=== PATIENT | male | born 1935 | race Caucasian/White ===

== ENCOUNTER 2017-05-05 19:41 | Emergency (ER) | payer MEDICARE ==
[2017-05-05] MEDS ORDERED: EPINEPHrine SYR 0.1 MG/ML* (1:10,000) SYRINGE ONE (19:42)
--- NOTE | 2017-05-05 22:54 | ED ---
Yuko Ruiz Rebecca, scribed for Morgan Devine MD on 05/05/17 at 1955 . Cardiac Resuscitation - HPI Summary HPI Summary: Pt is a 81 y/o M BIBA p/w cardiac arrest. Per EMS, pt had an episode of witnessed cardiac arrest at his house at 1849. At least 10 minutes elapsed before CPR was initiated. Upon arrival, EMS could not get pulses or spontaneous respirations. EMS administered 6 Epi, put an IO in and intubated the pt. 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 He was hyperglycemic upon EMS arrival, with BG in the 400s. He arrived at [facility] ED at 1940 with fixed pupils, breath sounds bilaterally with bagging and PEA on monitor. Chest compressions were continued and he was administered 3 Epi. Chest compressions ceased at 1951. Level 5 caveat due to Extremis. - History of Current Complaint Stated Complaint: CARDIAC ARREST Hx Obtained From: EMS Hx From Patient Unobtainable Due To: Extremis Arrest Witnessed: Yes Down-time Before Advanced Life Support Initiated: Down-time before ALS initiated : - At least 10 minutes AED Placed on Patient By: EMS Was Defibrillating Shock Administered: Yes Did Patient Have Return of Spontaneous Circulation (ROSC): No - Prehospital Intervention Breathing: Intubation: Circulation/Rhythm: Chest Compressions - Prehospital Response Breathing: ETT in Airway: Circulation/Rhythm: PEA - Past Medical History Past Medical History: Unobtainable Due to Extremis - Family History Family History: Unobtainable Due to Extremis - Social History Social History: Unobtainable Due to Extremis - Review of Systems Review of Systems: Unobtainable Due to Extremis Physical Examination - Physical Examination Completion Of Physical Exam Limited Due To: Extremis Resuscitation Termination Time: 19:52 Resuscitation: Unsuccessful - ED Findings Breathing: Bilateral - Bilateral breath sounds with bagging Circulation/Rhythm: PEA - ED Intervention Circulation/Rhythm: Chest Compressions, Epinephrine: - 3 - ED Response Breathing: Equal Breath Sounds - Breath sounds bilaterally with bagging Circulation/Rhythm: PEA Diagnostics - Vital Signs Vital Signs Pulse 05/05/17 19:52 0 - Laboratory Lab Statement: Any lab studies that have been ordered have been reviewed, and results considered in the medical decision making process. Cardiac Resus. Course/Dx - Course Assessment/Plan: Pt is a 81 y/o M BIBA p/w cardiac arrest. Per EMS, pt had an episode of witnessed cardiac arrest at his house at 1849. At least 10 minutes elapsed before CPR was initiated. Upon arrival, EMS could not get pulses or spontaneous respirations. EMS administered 6 Epi, put an IO in and intubated the pt. 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 He was hyperglycemic upon EMS arrival, with BG in the 400s. He arrived at [facility] ED at 1940 with fixed pupils, breath sounds bilaterally with bagging and PEA on monitor. Chest compressions were continued and he was administered 3 Epi. Chest compressions ceased at 1951. Level 5 caveat due to Extremis. Critical care time of less than [address] RAJAN. PATIENT HAS A CARDIAC HISTORY, HAS BEEN FEELING SHORT OF BREATH. WITNESSED ARREST. - Diagnoses Provider Diagnoses: Cardiopulmonary arrest During the Visit The Following Alert/Code Occurred: ABC Alert - Called at 1927, approximately 10 minutes PRICE ECONOMIST Discharge - Discharge Plan Condition: Disposition: Referrals: Non Staff,Doctor [Primary Care Provider] - The documentation as recorded by the Yuko juarez Rebecca accurately reflects the service I personally performed and the decisions made by me, Morgan Devine MD.
== END 2017-05-05 22:00 | disposition expired ==
LOC: EDBD → EDUNIT# → ED 19:41
DX: I46.9 Cardiac arrest, cause unspecified (principal)
CPT/HCPCS: 99285; J0171